=== PATIENT | female | born 1950 | race Caucasian/White ===

== ENCOUNTER → 2023-07-21 13:52 | Outpatient (REF) | payer OTHER, SELFPAY | LOC: DHCBS MAIN 13:52 | PROVIDERS: ATTENDING PHYSICIAN Internal Medicine Cardiovascular Disease; FAMILY PHYSICIAN Internal Medicine | DX: R06.09 Other forms of dyspnea (principal) | CPT/HCPCS: 93306 ==

== ENCOUNTER → 2023-08-09 10:38 | Outpatient (REF) | payer OTHER, SELFPAY | LOC: RAD 10:38 | PROVIDERS: ATTENDING PHYSICIAN Internal Medicine Cardiovascular Disease; FAMILY PHYSICIAN Internal Medicine | DX: I10 Essential (primary) hypertension (principal); I65.23 Occlusion and stenosis of bilateral carotid arteries | CPT/HCPCS: 93880 ==

== ENCOUNTER → 2023-11-21 11:12 | Outpatient (REF) | payer OTHER, SELFPAY | LOC: RAD 11:12 | PROVIDERS: ATTENDING PHYSICIAN Internal Medicine Hematology & Oncology; FAMILY PHYSICIAN Internal Medicine | DX: Z13.820 Encounter for screening for osteoporosis (principal); Z79.811 Long term (current) use of aromatase inhibitors; D05.01 Lobular carcinoma in situ of right breast | CPT/HCPCS: 77080 ==

== ENCOUNTER → 2023-12-30 13:59 | Outpatient (REF) | payer OTHER, SELFPAY | LOC: WDC 13:59 | PROVIDERS: ATTENDING PHYSICIAN Registered Nurse; FAMILY PHYSICIAN Internal Medicine | DX: R92.8 Other abnormal and inconclusive findings on diagnostic imaging of breast (principal) | CPT/HCPCS: 76642 ==

== ENCOUNTER → 2024-01-26 11:23 | Outpatient (REF) | payer OTHER, SELFPAY | LOC: RAD 11:23 | PROVIDERS: ATTENDING PHYSICIAN Internal Medicine Rheumatology; FAMILY PHYSICIAN Internal Medicine | DX: M25.551 Pain in right hip (principal); M25.552 Pain in left hip; M25.561 Pain in right knee; M25.562 Pain in left knee; M54.41 Lumbago with sciatica, right side; M54.50 Low back pain, unspecified; M81.0 Age-related osteoporosis without current pathological fracture | CPT/HCPCS: 72072; 72110; 73523; 73560; 73565 ==

== ENCOUNTER → 2024-02-22 09:05 | Outpatient (REF) | payer OTHER, SELFPAY | LOC: MRI 3T 09:05 | PROVIDERS: ATTENDING PHYSICIAN Physical Medicine & Rehabilitation Pain Medicine; FAMILY PHYSICIAN Internal Medicine | DX: M48.062 Spinal stenosis, lumbar region with neurogenic claudication (principal) | CPT/HCPCS: 72148 ==

== ENCOUNTER → 2024-03-09 13:48 | Outpatient (REF) | payer OTHER, SELFPAY | LOC: WDC 13:48 | PROVIDERS: ATTENDING PHYSICIAN Internal Medicine Hematology & Oncology; FAMILY PHYSICIAN Internal Medicine | DX: R92.2 Inconclusive mammogram (principal) | CPT/HCPCS: 76641 ==

== ENCOUNTER → 2024-05-01 12:27 | Outpatient (REF) | payer OTHER, SELFPAY | LOC: WDC 12:27 | PROVIDERS: ATTENDING PHYSICIAN Family Medicine Geriatric Medicine; FAMILY PHYSICIAN Internal Medicine | DX: Z12.31 Encounter for screening mammogram for malignant neoplasm of breast (principal); Z12.39 Encounter for other screening for malignant neoplasm of breast; Z85.3 Personal history of malignant neoplasm of breast; D05.01 Lobular carcinoma in situ of right breast | CPT/HCPCS: 77063; 77067 ==

== ENCOUNTER → 2025-03-21 14:44 | Outpatient (REF) | payer MEDICARE, SELFPAY | LOC: WDC 14:44 | PROVIDERS: ATTENDING PHYSICIAN Internal Medicine Hematology & Oncology; FAMILY PHYSICIAN Internal Medicine | DX: R92.2 Inconclusive mammogram (principal) | CPT/HCPCS: 76641 ==

== ENCOUNTER → 2025-05-02 14:09 | Outpatient (REF) | payer MEDICARE, SELFPAY | LOC: WDC 14:09 | PROVIDERS: ATTENDING PHYSICIAN Family Medicine Geriatric Medicine; FAMILY PHYSICIAN Internal Medicine | DX: Z12.31 Encounter for screening mammogram for malignant neoplasm of breast (principal) | CPT/HCPCS: 77063; 77067 ==

== ENCOUNTER 2025-05-12 17:16 | Emergency (ER) | payer MEDICARE, SELFPAY ==
[2025-05-12] VITALS (44 sets, daily range): BP systolic 96–158; BP diastolic 58–100
[2025-05-12] MEDS: ZOFRAN 4 MG IV (18:46)
--- NOTE | 2025-05-12 18:56 | ED.MUSCINJ ---
HPI-Injury
<Oliva Sorto NP - Last Filed: 05/12/25 22:32>
General
Chief Complaint: Fall
Source: patient
Exam Limitations: none
Time Seen by Provider: 05/12/25 17:26
Nursing documentation reviewed up to this point in time: agreed with
History of Present Illness-Injury
Is this injury a work related problem?: No
Is pt an associate of [facility]?: No
Initial Injury comments:
Patient to the emergency department after a fall. She states she was in a parking lot and her shopping cart began to roll away. She reports chasing car and falling. She hit her face on the pavement, but denies any LOC. She sustained abrasions to
her upper lip and right anterior knee. She complains of severe pain to right hip. Right lower extremity is shortened and rotated. She was unable to stand. Family called 911 and she was transported to the ED via EMS. On arrival to ED she is
awake alert and oriented.
Past History
<Oliva Sorto NP - Last Filed: 05/12/25 22:32>
Past History
ED Past Medical History: GERD, HTN and Hypercholesterolemia
Review of Systems
<Oliva Sorto NP - Last Filed: 05/12/25 22:32>
Review of Systems
Allergies reviewed?: Yes
All Other Systems: ROS reviewed and negative except as documented in HPI and ROS
Constitutional: Reports no symptoms
EENT: Reports no symptoms
Respiratory: Reports no symptoms
Cardiac: Reports no symptoms
ABD/GI: Reports no symptoms
: Reports no symptoms
Musculoskeletal: Reports joint pain (Pain to right hip)
Skin: Reports other (Abrasions to face, right knee)
Neurological: Reports no symptoms
Psychiatric: Reports no symptoms
Musculoskeletal Injury Exam
<Oliva Sorto NP - Last Filed: 05/12/25 22:32>
Musculoskeletal Injury Exam
Right Lateral Hip:
Pain with Movement?: Moderate
Tender to palpation?: Moderate
Soft tissue swelling?: Mild
External deformity and angulation?: Other (Right lower extremity shortened and rotated)
Joint effusion?: None
Contusion?: Moderate
Hematoma-local bleeding into tissue?: None
Strain- Sprain- Tear (Connective tissue injury)?: Moderate
Crepitus with movement?: No
Distal skin color and temperature: normal-warm & good color
Capillary Refill: normal
Normal distal neurovascular exam?: Yes
Peripheral Pulses: posterior tibial (right): 3+ and dorsalis pedis (right): 3+
Skin Exam
<Oliva Sorto RELIABILITY ENGINEER - Last Filed: 05/12/25 22:32>
Abrasion
Upper lip:
Description of abrasion: superfical/clean
Right Anterior Knee:
Description of abrasion: superfical/clean
Phy Exam
<Oliva Sorto RELIABILITY ENGINEER - Last Filed: 05/12/25 22:32>
General Physical Exam
General Presentation: moderate distress
General age: appears stated age
General Skin: warm and dry
General Habitus: normal
General Mental: alert
Cardiovascular Exam
Cardiovascular Exam: regular rate/rhythm and no edema
Pulmonary Exam
Pulmonary Exam: lungs clear, no respiratory distress and chest non tender
Gastrointestinal Exam
Gastrointestinal Exam: non tender, soft, no organomegaly, no pulsatile mass and non distended
Neurological Exam
Neurological Exam: alert, oriented x3, CN II-XII intact, no motor deficits, no sensory deficits and speech normal
Jimmy Coma Scale
Eye Opening: Spontaneous
Verbal Response: Oriented
Motor Response: Obeys Commands
GCS Total Score: 15
Musculoskeletal Exam
Musculoskeletal Exam: neuro vasc intact and other (Right hip pain on arrival to ED, right lower extremity shortened and rotated)
Skin Exam
Skin Exam: warm/dry and other (Hematoma left forehead, abrasion upper lip, abrasion right anterior knee.)
Psychiatric Exam
Psychiatric Exam: normal mood/affect
Injury Course
<Oliva Sorto RELIABILITY ENGINEER - Last Filed: 05/12/25 22:32>
Orders/Labs/Results
Orders:
Orders
05/12/25 17:[address] [CT Head W/o Iv Contrast] Urgent
Comment:
Reason For Exam: head strike
05/12/25 17:29
Hip, Right 2-3 Views [CR Hip - RT w/wo Pel 2-3 Vw*] Urgent
Comment:
Reason For Exam: deformity, pain
Include a pelvis x-ray?: Yes
05/12/25 18:02
Cervical Spine wo Contrast CT [CT Cervical Spine W/o Iv Contr] Urgent
Comment:
Reason For Exam: fall
05/12/25 18:41
Ondansetron Injectable [Zofran] 4 mg IV NOW STA
05/12/25 18:45
Propofol [Diprivan] 20 ml .ROUTE .STK-MED
05/12/25 19:12
CR Hip - RT without Pel 1 Vw Stat
Comment: portable
Reason For Exam: post reduction
05/12/25 19:[address] [CT Pelvis W/o Iv Contrast] Urgent
Comment:
Reason For Exam: attn right hip.
05/12/25 20:52
Basic Metabolic Panel Urgent
Complete Blood Count/With Diff Urgent
Abnormal Lab Results
05/12/25
20:52
WBC 20.6 H 10^3/uL
(4.8-10.8)
Abs Immat Gran (auto) 0.1 H 10^3/uL
(0-0.05)
Absolute Neuts (auto) 18.0 H 10^3/uL
(1.4-6.5)
Absolute Monos (auto) 1.1 H 10^3/uL
(0.1-0.6)
Neutrophils % 87.4 H %
(42.2-75.2)
Lymphocytes % 6.0 L %
(20.5-51.1)
BUN 21 H mg/dl
(7-17)
Glucose 189 H mg/dl
(70-99)
05/12/25 20:52
05/12/25 20:52
<Travis Pena, DO - Last Filed: 05/12/25 21:14>
Orders/Labs/Results
Orders:
Orders
05/12/25 17:[address] [CT Head W/o Iv Contrast] Urgent
Comment:
Reason For Exam: head strike
05/12/25 17:29
Hip, Right 2-3 Views [CR Hip - RT w/wo Pel 2-3 Vw*] Urgent
Comment:
Reason For Exam: deformity, pain
Include a pelvis x-ray?: Yes
05/12/25 18:02
Cervical Spine wo Contrast CT [CT Cervical Spine W/o Iv Contr] Urgent
Comment:
Reason For Exam: fall
05/12/25 18:41
Ondansetron Injectable [Zofran] 4 mg IV NOW STA
05/12/25 18:45
Propofol [Diprivan] 20 ml .ROUTE .STK-MED
05/12/25 19:12
CR Hip - RT without Pel 1 Vw Stat
Comment: portable
Reason For Exam: post reduction
05/12/25 19:21
[address]vis [address] [CT Pelvis W/o Iv Contrast] Urgent
Comment:
Reason For Exam: attn right hip.
05/12/25 20:52
Basic Metabolic Panel Urgent
Complete Blood Count/With Diff Urgent
Abnormal Lab Results
05/12/25
20:52
WBC 20.6 H 10^3/uL
(4.8-10.8)
Abs Immat Gran (auto) 0.1 H 10^3/uL
(0-0.05)
Absolute Neuts (auto) 18.0 H 10^3/uL
(1.4-6.5)
Absolute Monos (auto) 1.1 H 10^3/uL
(0.1-0.6)
Neutrophils % 87.4 H %
(42.2-75.2)
Lymphocytes % 6.0 L %
(20.5-51.1)
BUN 21 H mg/dl
(7-17)
Glucose 189 H mg/dl
(70-99)
05/12/25 20:52
05/12/25 20:52
Procedures
Danglt;Oliva Sorto NP - Last Filed: 05/12/25 22:32>
Moderate Sedation
ASA Risk Score: Class I
Chart and allergies reviewed: Yes
Consent for anesthesia obtained: Yes
Time out completed (validating right patient & procedure): Yes
Moderate Sedation Start Time(when first medication is given): 19:07
History of difficult intubation: No
Airway free of obstruction: Yes
Patient has a gag reflex: Yes
Patient is able to open mouth: Yes
Patient has no dentures: Yes
Patient has no loose teeth: Yes
Medication administered by Provider during Moderate Sedation: IV Propofol (mg)
Total dose administered: 100
Time drug administered: 19:07
Moderate Sedation Procedure End Time: 19:15
Comment: Time Out: 1906
Joint/Fracture Reduction
Right Hip:
Anesthesia/sedation: Moderate sedation
<Travis Pena, - Last Filed: 05/12/25 21:14>
Joint/Fracture Reduction
Right Hip:
Indication for procedure:: Dislocated right hip
Procedure completed by: Becky
Consent form signed: Yes
Joint reduced: with anesthesia sedation
Injury was: closed
Further treatement: needs further treatment
Post reduction exam: stable
<Oliva Sorto RELIABILITY ENGINEER - Last Filed: 05/12/25 22:32>
*Radiology
Radiology exam reviewed: radiology read reviewed
*Pulse Oximetry
SaO2: 100
Oxygen Mode of Delivery: Room air
Patient hypoxic: no
<Travis Pena, DO - Last Filed: 05/12/25 21:14>
*Critical Care Note
Total Time (30-74mins, 75-104mins- exclusive of procedures): 35
<Oliva Sorto RELIABILITY ENGINEER - Last Filed: 05/12/25 22:32>
Update Note
Update Note:
Patient the emergency department after a fall in a parking lot this evening. Patient states she was chasing a shopping cart and lost her footing and fell landing on her right hip. She arrives to the emergency department via EMS with pain to her
right hip. Right lower extremity is shortened and rotated. She hit her face on the pavement during fall. She denies any LOC. She has a superficial abrasion to her upper lip and right anterior knee. She was sent for CT of her head and cervical
spine. CT of head without any evidence of intracranial hemorrhage. CT of cervical spine without any evidence of fracture or dislocation. X-ray of right hip confirms a right hip dislocation. Right hip was reduced under moderate sedation with
propofol. Discussed injury with Dr. Main. He recommends postreduction CT of pelvis which was completed. CT results confirm the postreduction of the right hip dislocation. 'Comminuted fracture of the posterior articular margin of the right
acetabulum. Larger fracture fragment is present posteriorly and superiorly. There is a small fracture fragment of the posterior margin of the mid right acetabulum. A tiny linear linear fracture fragment of the posterior aspect of the superior
medial acetabulum.' Dr. Main was notified of the CT findings. He recommends transfer to a trauma facility. Discussed CT findings with patient and family. Patient requesting transfer to [facility].
ED Attending Note
<Oliva Sorto RELIABILITY ENGINEER - Last Filed: 05/12/25 22:32>
-
Portions of this chart may have been created with voice recognition software.� Occasional wrong word or��sound alike� substitutions may have occurred due to the inherent limitations of voice recognition software.
<Travis Pena DO - Last Filed: 05/12/25 21:14>
ED Attending Note
Patient seen and examined by attending physician: Yes
I performed the substantive portion of visit, reviewed & personally made and approve the management plan that is documented in note by myself or DEONDRE.: Yes
ED Attending Note:
Seen with PA examined independently 75-year-old female ran into a hole chasing a shopping cart has numerous lumps and bumps, some bruising about the left forehead, most notably has a nonprosthetic hip dislocation on the right which was reduced
without difficulty
Discharge Plan
Departure
Patient Disposition: Acute Care Hospital
Date of Disposition: 05/12/25
Time of Disposition: 21:16
Patient with high blood pressure during this ER visit?: Yes
Condition: Fair
Covid-19: Not Applicable
Discharge Problem:
Closed fracture of right acetabulum
Prescriptions:
No Action
losartan 50 mg Tablet
50 mg PO DAILY
atorvastatin 20 mg Tablet
20 mg PO QPM
famotidine 20 mg Tablet
20 mg PO BID
amlodipine 10 mg Tablet
10 mg PO HS
letrozole 2.5 mg Tablet
2.5 mg PO DAILY
venlafaxine 37.5 mg Tablet Extended Release 24hr
37.5 mg PO DAILY
Women's 50 Plus Multivitamin 400 mcg-500 mg calcium-20 mcg Tablet
1 tab PO DAILY
latanoprost 0.005 % Drops
1 drp OPHTHALMIC (EYE) QPM
acetaminophen 650 mg Tablet Extended Release
650 mg PO Q12H PRN (Reason: as noted)
aspirin 81 mg Tablet,Chewable
81 mg PO QPM
calcium carbonate-vitamin D3 [Calcium 600 + D(3)] 600 mg-10 mcg (400 unit) Tablet
1 tab PO DAILY
cholecalciferol (vitamin D3) [Vitamin D3] 50 mcg (2,000 unit) Tablet
50 mcg PO DAILY
omega 2-gtg-jki-fish oil [Fish Oil] 1,200 (144-216) mg Capsule
1 cap PO DAILY
dorzolamide-timolol (PF) 2-0.5 % Drops
1 drp OPHTHALMIC (EYE) QAM AND QPM
hydrochlorothiazide 12.5 mg tablet
12.5 mg PO DAILY Qty: 90 5RF
Referrals:
Irma Gastelum MD [Family Provider, Internal Medicine]
Hospital Transfer
Other hospital: [facility]
I certify that the patient requires transfer: Yes
Discussed case with accepting physician: Dr. Wright
Reason for transfer: higher level of care
Interventions
Interventions:
*Risk Screen - Suicide Last Done: 05/12/25 17:23
*General Assessment Last Done: 05/12/25 17:23
*Neglect/Abuse Screening Last Done: 05/12/25 17:23
*ED- Fall Risk Assessment Last Done: 05/12/25 17:23
*ED COVID-19 Vaccine History Last Done: 05/12/25 17:23
*ED Influenza Vaccine History Last Done: 05/12/25 17:23
ED-Musculoskeletal Assessment Last Done: 05/12/25 17:25
ED- Neurological Assessment Last Done: 05/12/25 17:25
ED-Skin Assessment Last Done: 05/12/25 17:25
Discharge Date and Time
Print Language: FINNISH
[2025-05-12 21:05] LABS: Hematocrit 39.7 % (37.0-47.0); Hemoglobin 13.2 g/dL (12.0-16.0); Mean Corp Hgb Conc. 33.2 g/dL (33.0-37.0); Mean Corpuscular Volume 89.0 fL (81.0-99.0); Nucleated Red Blood Cells % 0 %; Platelet Count 278 10^3/uL (130-400); Red Cell Dist. Width 13.8 % (11.5-14.5)
[2025-05-12 21:34] LABS: Blood Urea Nitrogen 21 mg/dl (7-17); Calcium 9.5 mg/dl (8.4-10.2); Carbon Dioxide 22 mmol/L (22-30); Chloride 104 mmol/L (98-107); Estimated Creatinine Clearance 70 ml/min; Glucose 189 mg/dl (70-99); Sodium 136 mmol/L (135-145); eGFR > 60.00
== END 2025-05-12 22:41 | disposition short-term general hospital (02) ==
LOC: EMR 17:16
PROVIDERS: Nurse Practitioner; EMERGENCY PHYSICIAN Emergency Medicine; FAMILY PHYSICIAN Internal Medicine
DX: S32.401A Unspecified fracture of right acetabulum, initial encounter for closed fracture (principal); S73.034A Other anterior dislocation of right hip, initial encounter; W18.30XA Fall on same level, unspecified, initial encounter; Y93.02 Activity, running; Y92.481 Parking lot as the place of occurrence of the external cause; I10 Essential (primary) hypertension; E78.00 Pure hypercholesterolemia, unspecified; K21.9 Gastro-esophageal reflux disease without esophagitis; Z79.82 Long term (current) use of aspirin
CPT/HCPCS: 99291; 96374; 27250; 70450; 72125; 72192; 73501; 73502; 80048; 85025